=== PATIENT | male | born 1960 | race Caucasian/White ===

== ENCOUNTER 2020-05-18 07:02 | Outpatient (REF) | payer OTHER, SELFPAY ==
[2020-05-18 11:14] LABS: MANUAL DIFF FLAG NO
[2020-05-18 11:25] LABS: Basophils Percent Auto 0.3 % (0-2); Eosinophils Absolute Auto 0.2 X10*3/uL (0.0-0.4); Eosinophils Percent Auto 2.6 % (0-4); Hematocrit 41.8 % (42-52); Hemoglobin 13.9 g/dl (14.0-18.0); Imm Gran Abs Auto 0.02 X10*3/uL (0.00-0.03); Imm Gran Pct Auto 0.3 % (0.0-0.4); Lymphocytes Absolute Auto 3.5 X10*3/uL (1.2-4.9); Lymphocytes Percent Auto 46.4 % (20-40); Mean Corpuscular HGB Conc 33.3 g/dl (31.0-36.0); Mean Corpuscular Hemoglobin 31.2 pg (27.0-33.0); Mean Corpuscular Volume 93.9 fL (80-98); Mean Platelet Volume 9.9 fL (9.4-12.4); Monocytes Absolute Auto 0.8 X10*3/uL (0.1-1.2); Monocytes Percent Auto 10.4 % (2-11); Platelet Count 279 X10*3/uL (160-400); Red Blood Count 4.45 X10*6/uL (4.60-5.80); Red Cell Distribution Width 13.5 % (11.0-16.0); White Blood Count 7.4 X10*3/uL (4.8-10.8)
[2020-05-18 11:46] LABS: Anion Gap 14 (12-20); Blood Urea Nitrogen 18 mg/dL (9-16); Calcium 8.2 mg/dL (8.4-10.2); Carbon Dioxide 26 mmol/L (22-29); Chloride 105 mmol/L (96-108); Cholesterol 165 mg/dL; Estimated Glomerular Filt Rate > 60; Glucose Fasting 101 mg/dL (60-99); HDL Cholesterol 38 mg/dL; LDL Cholesterol Calculated 110 mg/dl; Potassium 4.5 mmol/l (3.3-5.1); Sodium 140 mmol/L (135-145); Triglycerides 85 mg/dL
[2020-05-22 15:51] LABS: Vitamin D 25-OH, D2 <4 ng/mL; Vitamin D 25-OH, D3 27 ng/mL; Vitamin D 25-OH, Total 27 ng/mL (30-100)
== END 2020-05-18 07:03 | disposition home or self-care (01) ==
LOC: HO.HMGCLDS 07:02
PROVIDERS: PCP Internal Medicine; Visit Provider Internal Medicine
DX: Z00.00 Encounter for general adult medical examination without abnormal findings (principal)
CPT/HCPCS: 36415; 80048; 80061; 82306; 85025

== ENCOUNTER 2021-03-13 08:43 | Outpatient (REF) | payer OTHER, SELFPAY ==
--- NOTE | 2021-03-13 08:47 | EMG_ITS ---
This is a 61-year-old man with a 2-month history of right hand numbness in the 5th finger and inability to hold things. He has no other medical problems. No history of trauma. PHYSICAL EXAMINATION: On examination, he is alert and oriented with normal intellectual functions. He has weakness of the intrinsic hand muscles and finger spread. Opposition and APB are normal. He has decreased sensation in the ulnar nerve distribution in the ulnar half of the 4th finger and the 5th finger. IMPRESSION: Ulnar neuropathy. Nerve conduction EMG study: Severe right ulnar neuropathy due to compression at the elbow. EMG of the right upper extremity shows active denervation in the ulnar innervated intrinsic hand muscles consistent with a subacute ulnar neuropathy. MD ARUN De/KAROL / [id number]
== END 2021-03-13 08:44 | disposition home or self-care (01) ==
LOC: HO.NEURO 08:43
PROVIDERS: PCP Internal Medicine; Visit Provider Internal Medicine
DX: R20.2 Paresthesia of skin (principal)
CPT/HCPCS: 95885; 95910

== ENCOUNTER 2021-05-17 10:12 | Outpatient (REF) | payer OTHER, SELFPAY ==
[2021-05-17 11:23] LABS: MANUAL DIFF FLAG NO
[2021-05-17 11:28] LABS: Basophils Percent Auto 0.4 % (0-2); Eosinophils Absolute Auto 0.2 X10*3/uL (0.0-0.4); Eosinophils Percent Auto 2.7 % (0-4); Hematocrit 43.5 % (42.0-52.0); Hemoglobin 14.6 g/dl (14.0-18.0); Imm Gran Abs Auto 0.01 X10*3/uL (0.00-0.03); Imm Gran Pct Auto 0.1 % (0.0-0.4); Lymphocytes Absolute Auto 1.8 X10*3/uL (1.2-4.9); Lymphocytes Percent Auto 25.1 % (20-40); Mean Corpuscular HGB Conc 33.6 g/dl (31.0-36.0); Mean Corpuscular Hemoglobin 32.2 pg (27.0-33.0); Mean Platelet Volume 9.4 fL (9.4-12.4); Monocytes Absolute Auto 0.7 X10*3/uL (0.1-1.2); Monocytes Percent Auto 9.4 % (2-11); Neutrophils Absolute Auto 4.4 x10*3/uL (2.0-8.3); Neutrophils Percent Auto 62.3 % (45-73); Platelet Count 294 X10*3/uL (160-400); Red Blood Count 4.53 X10*6/uL (4.60-5.80); Red Cell Distribution Width 12.9 % (11.0-16.0)
[2021-05-17 11:58] LABS: Alanine Aminotransferase 16 U/L (0-40); Albumin Level 4.3 g/dL (3.5-5.0); Alkaline Phosphatase 65 U/L (39-117); Anion Gap 12 (12-20); Aspartate Amino Transferase 15 U/L (5-37); Bilirubin Total 0.6 mg/dL (0.0-1.0); Blood Urea Nitrogen 19 mg/dL (9-16); Calcium 9.1 mg/dL (8.4-10.2); Carbon Dioxide 27 mmol/L (22-29); Chloride 105 mmol/L (96-108); Estimated Glomerular Filt Rate > 60; Glucose Random 97 mg/dL (60-115); Potassium 5.2 mmol/L (3.3-5.1); Sodium 139 mmol/L (135-145); Total Protein 6.8 g/dL (6.5-8.0)
[2021-05-17 12:10] LABS: Estimated Average Glucose 100 mg/dL; Hemoglobin A1c % 5.1 %
[2021-05-18 11:06] LABS: LDL Cholesterol Direct 98 mg/dL (<100)
== END 2021-05-17 10:13 | disposition home or self-care (01) ==
LOC: HO.HMGCLDS 10:12
PROVIDERS: PCP Internal Medicine; Visit Provider Internal Medicine
DX: Z00.01 Encounter for general adult medical examination with abnormal findings (principal); M19.90 Unspecified osteoarthritis, unspecified site; R73.01 Impaired fasting glucose
CPT/HCPCS: 36415; 80053; 83036; 83721; 85025

== ENCOUNTER 2022-05-21 10:55 | Outpatient (REF) | payer OTHER, SELFPAY ==
[2022-05-21 14:12] LABS: MANUAL DIFF FLAG NO
[2022-05-21 14:13] LABS: Basophils Absolute Auto 0.1 X10*3/uL (0.0-0.2); Basophils Percent Auto 0.6 % (0-2); Eosinophils Absolute Auto 0.2 X10*3/uL (0.0-0.4); Eosinophils Percent Auto 2.6 % (0-4); Hematocrit 44.1 % (42.0-52.0); Hemoglobin 15.2 g/dl (14.0-18.0); Imm Gran Abs Auto 0.02 X10*3/uL (0.00-0.03); Imm Gran Pct Auto 0.2 % (0.0-0.4); Lymphocytes Absolute Auto 2.6 X10*3/uL (1.2-4.9); Lymphocytes Percent Auto 29.4 % (20-40); Mean Corpuscular HGB Conc 34.5 g/dl (31.0-36.0); Mean Corpuscular Hemoglobin 32.1 pg (27.0-33.0); Mean Corpuscular Volume 93.2 fL (80.0-98.0); Mean Platelet Volume 9.4 fL (9.4-12.4); Monocytes Absolute Auto 0.9 X10*3/uL (0.1-1.2); Monocytes Percent Auto 9.5 % (2-11); Neutrophils Absolute Auto 5.1 x10*3/uL (2.0-8.3); Neutrophils Percent Auto 57.7 % (45-73); Platelet Count 322 X10*3/uL (160-400); Red Blood Count 4.73 X10*6/uL (4.60-5.80); White Blood Count 8.9 X10*3/uL (4.8-10.8)
[2022-05-22 16:13] LABS: Estimated Average Glucose 105 mg/dL; Hemoglobin A1c % 5.3 %
[2022-05-23 01:26] LABS: LDL Cholesterol Direct 102 mg/dL (<100)
== END 2022-05-21 10:56 | disposition home or self-care (01) ==
LOC: HO.HMGCLDS 10:55
PROVIDERS: PCP Internal Medicine; Visit Provider Internal Medicine
DX: Z00.01 Encounter for general adult medical examination with abnormal findings (principal); R03.0 Elevated blood-pressure reading, without diagnosis of hypertension; R73.01 Impaired fasting glucose
CPT/HCPCS: 36415; 83036; 83721; 85025

== ENCOUNTER 2022-05-23 09:16 | Outpatient (REF) | payer OTHER, SELFPAY ==
[2022-05-23 12:08] LABS: Alanine Aminotransferase 15 U/L (0-40); Alkaline Phosphatase 80 U/L (39-117); Anion Gap 15 (12-20); Aspartate Amino Transferase 17 U/L (5-37); Bilirubin Total 1.3 mg/dL (0.0-1.0); Blood Urea Nitrogen 20 mg/dL (9-16); Calcium 9.2 mg/dL (8.4-10.2); Carbon Dioxide 25 mmol/L (22-29); Chloride 105 mmol/L (96-108); Estimated Glomerular Filt Rate > 60; Glucose Random 92 mg/dL (60-115); Sodium 140 mmol/L (135-145); Total Protein 6.9 g/dL (6.5-8.0)
[2022-05-23 12:49] LABS: TSH reflex Free T4 0.96 uIU/mL (0.32-4.0)
[2022-05-23 12:59] LABS: Albumin Level 4.3 g/dL (3.5-5.0)
== END 2022-05-23 09:17 | disposition home or self-care (01) ==
LOC: HO.HMGCLDS 09:16
PROVIDERS: PCP Internal Medicine; Visit Provider Internal Medicine
DX: Z00.01 Encounter for general adult medical examination with abnormal findings (principal); R73.01 Impaired fasting glucose; R03.0 Elevated blood-pressure reading, without diagnosis of hypertension
CPT/HCPCS: 36415; 80053; 84443

== ENCOUNTER 2023-05-26 08:26 | Outpatient (AMB) | payer OTHER, SELFPAY ==
--- NOTE | 2023-05-26 08:28 | MHC.PC.OV ---
Vital Signs 05/26/23 08:29 Height 6 ft 0.83 in Weight 182 lb BMI 24.1 BP 120/76 Blood Pressure Location Lt brachial Position Sitting Pulse 76 Pulse Source Pulse Oximeter Pulse Oximetry (%) 96 Oxygen Delivery Method Room Air Intake Visit Reasons: Annual PE Intake Note: Pt is here today for PE. Allergies No Known Allergies [No Known Allergies*] Allergy (Verified 05/26/23 08:31) Medication List - Last Reconciled 05/26/23 by Jennifer Tsang MD No Known Home Meds Tobacco use date assessed: 05/26/23 Dental Screening Dental Screen Date: 05/26/23 Did you have a dental visit in the last 12 months?: Yes Did you have a dental problem in the last 6 months where you did not have access to dental care?: No Was dental information given to patient?: Patient has dentist HPI Annual PE HPI Details It is 63-year-old gentleman came in today for physical examination Blood pressure is well controlled today at 120/76 Patient takes no medication He is prediabetic, he will have labs done fasting Colonoscopy was November of 2013 1 hyperplastic polyp was found it was done by Dr. Durham at [facility] Next 1 in 2023 Continue to have paresthesia right hand secondary to mild ulnar neuropathy However has improved from last year since patient has stop sitting with his elbows on the table Follow-up 1 [facility] Surgical History No pertinent past surgical history Family History Father No problems noted. Mother No problems noted. Son No problems noted. Daughter No problems noted. Daughter No problems noted. Social History Housing: House Alcohol intake: current Alcohol intake frequency: a few times a month Patient Tobacco Use Status: Current everyday Tobacco user Cigarette Packs Per Day: 1 e-Cigarette/Vaping Use: Never Used Current occupational status: employed Cognitive needs: No Hearing needs: No Vision needs: No Questionnaire PHQ-9 Over the last 2 weeks, how often have you been bothered by any of the following problems? 1. Little interest or pleasure in doing things: not at all 2. Feeling down, depressed, or hopeless: not at all 3. Trouble falling or staying asleep, or sleeping too much: not at all 4. Feeling tired or having little energy: not at all 5. Poor appetite or overeating: not at all 6. Feeling bad about yourself - or that you are a failure or have let yourself or your family down: not at all 7. Trouble concentrating on things, such as reading the newspaper or watching television: not at all 8. Moving or speaking so slowly that other people could have noticed. Or the opposite - being so fidgety or restless that you have been moving around a lot more than usual: not at all 9. Thoughts that you would be better off or of hurting yourself in some way: not at all Total score: 0 Depression Screening Interpretation: Negative Depression Screening Done: Yes 12380 - PHQ-9 Billing: Yes Source: Developed by Drs. Jose Bonilla, Cari Gonzalez, Tacho Rodriguez and colleagues, with an educational melquiades from [employer]. Thrive Questionnaire Date Thrive assessed: 05/26/23 I am a: Patient What is your living situation today?: I have a steady place to live Within the past 12 months, did the food you bought not last and you didn't have the money to get more?: Never true Within the past 12 months, did you worry whether your food would run out before you got money to buy more?: Never true Do you have trouble paying for medicines?: No Do you have trouble getting transportation to medical appointments?: No Do you have trouble paying your heating and electricity bill?: No Do you have trouble taking care of your child, family member or friend?: No Do you have trouble with day-to-day activities such as bathing, preparing meals, shopping, managing finances, etc.?: No Are you currently unemployed and looking for a job?: No Are you interested in more education?: No Please select the resources that you would like help with: None Currently or been in a relationship where the following occur: no concerns reported AUDIT C Alcohol Use Questionnaire (AUDIT-C) 1. How often do you have a drink containing alcohol?: Monthly or less 2. How many drinks containing alcohol do you have on a typical day when you are drinking?: 1 or 2 3. How often do you have six or more drinks on one occasion?: Never Total Score: 1 Score Reviewed/Action Taken: No FELICIA-7 AMB Questionnaire FELICIA-7 Date FELICIA - 7 assessed: 05/26/23 Feeling nervous, anxious, or on edge: 0 = Not at all Not being able to stop or control worryin = Not at all Worrying too much about different things: 0 = Not at all Trouble relaxin = Not at all Being so restless that it is hard to sit still: 0 = Not at all Becoming easily annoyed or irritable: 0 = Not at all Feeling afraid as if something awful might happen: 0 = Not at all Total FELICIA-7 score (0-4 normal; 5-9 mild; 10-14 moderate; 15-21 severe): 0 Source: Developed by Drs. Jose Bonilla, Cari Gonzalez, Tacho Rodriguez and colleagues, with an educational melquiades from [employer]. FELICIA-7 Assessment Billing FELICIA-7 Assessment Tool: FELICIA-7 Assessment 97283 Review of Systems Const Denies chills, Denies fever(s) and Denies headache(s) Eyes Denies blurry vision ENT Denies headache(s), Denies nasal discharge, Denies nasal obstruction, Denies odynophagia and Denies sinus pain Card Denies chest pain at rest and Denies chest pain with activity Resp Denies cough and Denies hemoptysis GI Denies diarrhea, Denies odynophagia, Denies vomiting and Denies hematemesis Reports as per HPI Musc Denies abnormal gait Skin/Breast Reports as per HPI Neuro Denies Neuro-related abnormal movements, Denies Abnormal speech present, Denies abnormal gait, Denies headache(s) and Denies Sensory deficit (Neuro) Psych Denies mood swings and Denies paranoia Endo Reports as per HPI Shiraz/Lymph Reports as per HPI Aller/Immun Reports as per HPI Physical exam (Primary Care) Vital Signs: Last Vital Signs Pulse 76 05/26/23 08:29 BP 120/76 05/26/23 08:29 Pulse Ox 96 05/26/23 08:29 Oxygen Delivery Method Room Air 05/26/23 08:29 BMI result Body Mass Index 24.1 Tobacco/Smoking Status: Tobacco use Status Tobacco use date assessed 05/26/23 05/26/23 08:34 Patient Tobacco Use Status Current everyday Tobacco 05/26/23 08:31 e-Cigarette/Vaping Use Never Used 05/26/23 08:31 PHQ-9: PHQ-9 Score PHQ-9: Total score 0 05/26/23 08:48 Depression Screening Interpretation: Negative Thrive Assessment: Date of Thrive Assessment Date Thrive assessed 05/26/23 05/26/23 08:34 Currently or been in a relationship where the following occur: no concerns reported Const General: cooperative, comfortable and no acute distress Orientation/consciousness: patient oriented x3 HENMT Head: Yes normocephalic and Yes atraumatic Eyes General: appearance normal, both eyes and all related structures Pupils: Equal, round and reactive pupils present EOM: EOMs intact bilaterally Neck Neck: Yes supple and No lymphadenopathy Thyroid: Thyroid normal Lymphatic: no lymphadenopathy noted Resp Effort & Inspection: normal respiratory effort and able to speak in complete sentences Auscultation: clear to auscultation bilaterally Cardio Heart sounds: S1 normal heart sound present and S2 normal heart sound present GI Palpation (GI): Soft to palpation and nontender Auscultation: normal bowel sounds General: Yes no CVA tenderness Back/Spine/Pelvis Back: no CVA tenderness Skin General skin exam: elasticity normal and turgor normal Neuro General: patient oriented x3 and gait normal Cranial nerves: Yes Equal, round and reactive pupils present Speech: No Abnormal speech present Sensory Exam: No Sensory deficit (Neuro) Coordination: tandem gait normal and Romberg test negative Extrem General: Yes normal exam except as noted and No edema Assessment and Plan Assessment & Plan (1) Encounter for general adult medical examination with abnormal findings: Code(s): Z00.01 - Encounter for general adult medical examination with abnormal findings (2) Impaired fasting blood sugar: Code(s): R73.01 - Impaired fasting glucose (3) Ulnar neuropathy of right upper extremity: Code(s): G56.21 - Lesion of ulnar nerve, right upper limb (4) Paresthesias in right hand: Code(s): R20.2 - Paresthesia of skin Plan It is 63-year-old gentleman came in today for physical examination Blood pressure is well controlled today at 120/76 Patient takes no medication He is prediabetic, he will have labs done fasting Colonoscopy was November of 2013 1 hyperplastic polyp was found it was done by Dr. Durham at [facility] Next 1 in 2023 Continue to have paresthesia right hand secondary to mild ulnar neuropathy However has improved from last year since patient has stop sitting with his elbows on the table Follow-up 1 year Orders: Orders Lipid Panel Today R73.01 - Impaired fasting glucose, Z00.01 - Encounter for general adult medical examination with abnormal findings Hemoglobin A1c Today R73.01 - Impaired fasting glucose, Z00.01 - Encounter for general adult medical examination with abnormal findings Complete Blood Count Auto Diff Today R73.01 - Impaired fasting glucose, Z00.01 - Encounter for general adult medical examination with abnormal findings Comprehensive [place]. Panel Fast Today R73.01 - Impaired fasting glucose, Z00.01 - Encounter for general adult medical examination with abnormal findings Coding Level of Care Code Est Pt Prev Care 40-64y(09247) Diagnoses Encounter for general adult medical examination with abnormal findings Z00.01 Impaired fasting blood sugar R73.01 Ulnar neuropathy of right upper extremity G56.21 Paresthesias in right hand R20.2 Additional Codes FELICIA-7 Assessment Billing - FELICIA-7 Assessment Tool: FELICIA-7 Assessment 59269 ([id number])
[2023-05-26 08:29] VITALS: BP 120/76; PULSE 76; O2SAT 96; BMI 24.1
== END 2023-05-26 10:17 | disposition home or self-care (01) ==
PROVIDERS: Visit Provider Internal Medicine
DX: Z00.00 Encounter for general adult medical examination without abnormal findings (principal); R73.01 Impaired fasting glucose; G56.21 Lesion of ulnar nerve, right upper limb; R20.2 Paresthesia of skin
CPT/HCPCS: 99396

== ENCOUNTER 2023-06-05 08:28 | Outpatient (REF) | payer OTHER, SELFPAY ==
[2023-06-05 11:22] LABS: MANUAL DIFF FLAG NO
[2023-06-05 11:42] LABS: Estimated Average Glucose 103 mg/dL; Hemoglobin A1c % 5.2 % (<6.0)
[2023-06-05 11:52] LABS: Basophils Absolute Auto 0.1 X10*3/uL (0.0-0.2); Basophils Percent Auto 0.6 % (0-2); Eosinophils Absolute Auto 0.4 X10*3/uL (0.0-0.4); Hematocrit 44.5 % (42.0-52.0); Hemoglobin 15.2 g/dl (14.0-18.0); Imm Gran Abs Auto 0.02 X10*3/uL (0.00-0.03); Imm Gran Pct Auto 0.2 % (0.0-0.4); Lymphocytes Absolute Auto 3.5 X10*3/uL (1.2-4.9); Lymphocytes Percent Auto 34.8 % (20-40); Mean Corpuscular HGB Conc 34.2 g/dl (31.0-36.0); Mean Corpuscular Hemoglobin 31.5 pg (27.0-33.0); Mean Corpuscular Volume 92.3 fL (80.0-98.0); Mean Platelet Volume 9.6 fL (9.4-12.4); Monocytes Absolute Auto 0.8 X10*3/uL (0.1-1.2); Monocytes Percent Auto 7.8 % (2-11); Neutrophils Absolute Auto 5.3 x10*3/uL (2.0-8.3); Neutrophils Percent Auto 52.6 % (45-73); Platelet Count 304 X10*3/uL (160-400); Red Blood Count 4.82 X10*6/uL (4.60-5.80); Red Cell Distribution Width 13.5 % (11.0-16.0); White Blood Count 10.1 X10*3/uL (4.8-10.8)
[2023-06-05 12:09] LABS: Alanine Aminotransferase 15 U/L (0-40); Albumin Level 4.4 g/dL (3.5-5.0); Alkaline Phosphatase 73 U/L (39-117); Anion Gap 12 (12-20); Aspartate Amino Transferase 18 U/L (5-37); Bilirubin Total 1.8 mg/dL (0.0-1.0); Blood Urea Nitrogen 14 mg/dL (9-16); Calcium 9.7 mg/dL (8.4-10.2); Carbon Dioxide 28 mmol/L (22-29); Chloride 105 mmol/L (96-108); Cholesterol 138 mg/dL (<200); Estimated Glomerular Filt Rate > 60; Glucose Fasting 114 mg/dL (60-99); HDL Cholesterol 47 mg/dL (>40); LDL Cholesterol Calculated 79 mg/dL (<100); Potassium 5.4 mmol/L (3.3-5.1); Sodium 140 mmol/L (135-145); Total Protein 7.1 g/dL (6.5-8.0); Triglycerides 61 mg/dL (<150)
== END 2023-06-05 08:29 | disposition home or self-care (01) ==
LOC: HO.HMGCLDS 08:28
PROVIDERS: PCP Internal Medicine; Visit Provider Internal Medicine
DX: Z00.01 Encounter for general adult medical examination with abnormal findings (principal); R73.01 Impaired fasting glucose
CPT/HCPCS: 36415; 80053; 80061; 83036; 85025

== ENCOUNTER 2023-06-11 07:50 | Outpatient (REF) | payer OTHER, SELFPAY ==
[2023-06-11 11:45] LABS: Estimated Average Glucose 108 mg/dL; Hemoglobin A1c % 5.4 % (<6.0)
[2023-06-11 12:17] LABS: Anion Gap 12 (12-20); Blood Urea Nitrogen 17 mg/dL (9-16); Carbon Dioxide 27 mmol/L (22-29); Chloride 106 mmol/L (96-108); Estimated Glomerular Filt Rate > 60; Potassium 4.5 mmol/L (3.3-5.1); Sodium 140 mmol/L (135-145)
== END 2023-06-11 07:51 | disposition home or self-care (01) ==
LOC: HO.HMGCLDS 07:50
PROVIDERS: PCP Internal Medicine; Visit Provider Internal Medicine
DX: E87.5 Hyperkalemia (principal); R73.01 Impaired fasting glucose
CPT/HCPCS: 36415; 80051; 82565; 83036; 84520

== ENCOUNTER 2024-05-31 08:12 | Outpatient (AMB) | payer OTHER, SELFPAY ==
--- NOTE | 2024-05-31 08:16 | A.OFFPC_ITS ---
Vital Signs 05/31/24 08:17 Height 5 ft 8 in Weight 180 lb 6 oz BMI 27.4 BP 118/68 Blood Pressure Location Lt brachial Position Sitting Pulse 72 Pulse Source Pulse Oximeter Pulse Oximetry (%) 96 Oxygen Delivery Method Room Air Intake Visit Reasons: PE Allergies No Known Allergies [No Known Allergies*] Allergy (Verified 05/31/24 08:30) Medication List - Last Reconciled 05/31/24 by Jennifer Tsang MD No Known Home Meds Tobacco use date assessed: 05/31/24 Fall risk assessment: No Falls in past year Last assessed Fall Risk: 05/31/24 Dental Screening Dental Screen Date: 05/31/24 Did you have a dental visit in the last 12 months?: Yes Did you have a dental problem in the last 6 months where you did not have access to dental care?: No Was dental information given to patient?: Patient has dentist HPI PE HPI Details It is 64-year-old gentleman came in today for physical examination Blood pressure is well controlled Patient takes no medication He is prediabetic, he will have labs done fasting Colonoscopy was November of 2013 1 hyperplastic polyp was found it was done by Dr. Durham at [facility] Next colon screening is due this year, however patient does not want to have colonoscopy this year. He says maybe next year Lab test ordered to be done fasting today Follow-up 1 year physical exam [facility] Surgical History No pertinent past surgical history Family History Father No problems noted. Mother No problems noted. Son No problems noted. Daughter No problems noted. Daughter No problems noted. Social History Housing: House Alcohol intake: current Alcohol intake frequency: a few times a month Patient Tobacco Use Status: Current everyday Tobacco user Cigarette Packs Per Day: 1 e-Cigarette/Vaping Use: Never Used Current occupational status: employed Cognitive needs: No Hearing needs: No Vision needs: No Questionnaire PHQ-9 Over the last 2 weeks, how often have you been bothered by any of the following problems? 1. Little interest or pleasure in doing things: not at all 2. Feeling down, depressed, or hopeless: not at all 3. Trouble falling or staying asleep, or sleeping too much: not at all 4. Feeling tired or having little energy: not at all 5. Poor appetite or overeating: not at all 6. Feeling bad about yourself - or that you are a failure or have let yourself or your family down: not at all 7. Trouble concentrating on things, such as reading the newspaper or watching television: not at all 8. Moving or speaking so slowly that other people could have noticed. Or the opposite - being so fidgety or restless that you have been moving around a lot more than usual: not at all 9. Thoughts that you would be better off or of hurting yourself in some way: not at all Total score: 0 Depression Screening Interpretation: Negative Depression Screening Done: Yes 57610 - PHQ-9 Billing: Yes Source: Developed by Drs. Jose Bonilal, Cari Gonzalez, Tacho Rodriguez and colleagues, with an educational melquiades from [employer]. Thrive Questionnaire Date Thrive assessed: 05/31/24 I am a: Patient What is your living situation today?: I have a steady place to live Within the past 12 months, did the food you bought not last and you didn't have the money to get more?: Never true Within the past 12 months, did you worry whether your food would run out before you got money to buy more?: Never true Do you have trouble paying for medicines?: No Do you have trouble getting transportation to medical appointments?: No Do you have trouble paying your heating and electricity bill?: No Do you have trouble taking care of your child, family member or friend?: No Do you have trouble with day-to-day activities such as bathing, preparing meals, shopping, managing finances, etc.?: No Are you currently unemployed and looking for a job?: No Are you interested in more education?: No Please select the resources that you would like help with: None Currently or been in a relationship where the following occur: No concerns reported THRIVE Score: 0 AUDIT C Alcohol Use Questionnaire (AUDIT-C) 1. How often do you have a drink containing alcohol?: Monthly or less 2. How many drinks containing alcohol do you have on a typical day when you are drinking?: 1 or 2 3. How often do you have six or more drinks on one occasion?: Never Total Score: 1 Score Reviewed/Action Taken: Yes FELICIA-7 AMB Questionnaire FELICIA-7 Date FELICIA - 7 assessed: 05/31/24 Feeling nervous, anxious, or on edge: 0 = Not at all Not being able to stop or control worryin = Not at all Worrying too much about different things: 0 = Not at all Trouble relaxin = Not at all Being so restless that it is hard to sit still: 0 = Not at all Becoming easily annoyed or irritable: 0 = Not at all Feeling afraid as if something awful might happen: 0 = Not at all Total FELICIA-7 score (0-4 normal; 5-9 mild; 10-14 moderate; 15-21 severe): 0 Source: Developed by Drs. Jose Bonilla, Cari Gonzalez, Tacho Rodriguez and colleagues, with an educational melquiades from [employer]. FELICIA-7 Assessment Billing FELICIA-7 Assessment Tool: FELICIA-7 Assessment 94994 Review of Systems Const Denies chills, Denies fever(s) and Denies headache(s) Eyes Denies blurry vision ENT Denies headache(s), Denies nasal discharge, Denies nasal obstruction, Denies odynophagia and Denies sinus pain Card Denies chest pain at rest and Denies chest pain with activity Resp Denies cough and Denies hemoptysis GI Denies diarrhea, Denies odynophagia, Denies vomiting and Denies hematemesis Reports as per HPI Musc Denies abnormal gait Skin/Breast Reports as per HPI Neuro Denies Neuro-related abnormal movements, Denies Abnormal speech present, Denies abnormal gait, Denies headache(s) and Denies Sensory deficit (Neuro) Psych Denies mood swings and Denies paranoia Endo Reports as per HPI Shiraz/Lymph Reports as per HPI Aller/Immun Reports as per HPI Physical exam (Primary Care) Vital Signs: Last Vital Signs Pulse 72 05/31/24 08:17 BP 118/68 05/31/24 08:17 Pulse Ox 96 05/31/24 08:17 Oxygen Delivery Method Room Air 05/31/24 08:17 BMI result Body Mass Index 27.4 Tobacco/Smoking Status: Tobacco use Status Tobacco use date assessed 05/31/24 05/31/24 08:31 Patient Tobacco Use Status Current everyday Tobacco 05/31/24 08:19 e-Cigarette/Vaping Use Never Used 05/31/24 08:19 PHQ-9: PHQ-9 Score PHQ-9: Total score 0 05/31/24 08:31 Depression Screening Interpretation: Negative Thrive Assessment: Date of Thrive Assessment Date Thrive assessed 05/31/24 05/31/24 08:31 Currently or been in a relationship where the following occur: No concerns reported Const General: cooperative, comfortable and no acute distress Orientation/consciousness: patient oriented x3 HENMT Head: Yes normocephalic and Yes atraumatic Eyes General: appearance normal, both eyes and all related structures Pupils: Equal, round and reactive pupils present EOM: EOMs intact bilaterally Neck Neck: Yes supple and No lymphadenopathy Thyroid: Thyroid normal Lymphatic: no lymphadenopathy noted Resp Effort & Inspection: normal respiratory effort and able to speak in complete sentences Auscultation: clear to auscultation bilaterally Cardio Heart sounds: S1 normal heart sound present and S2 normal heart sound present GI Palpation (GI): Soft to palpation and nontender Auscultation: normal bowel sounds General: Yes no CVA tenderness Back/Spine/Pelvis Back: no CVA tenderness Skin General skin exam: elasticity normal and turgor normal Neuro General: patient oriented x3 and gait normal Cranial nerves: Yes Equal, round and reactive pupils present Speech: No Abnormal speech present Sensory Exam: No Sensory deficit (Neuro) Coordination: tandem gait normal and Romberg test negative Extrem General: Yes normal exam except as noted and No edema Coding Level of Care Code Est Pt Prev Care 40-64y(55252) Diagnoses Annual physical exam Z00.00 Impaired fasting blood sugar R73.01 Additional Codes FELICIA-7 Assessment Billing - FELICIA-7 Assessment Tool: FELICIA-7 Assessment 03123 ([id number]) PHQ-9 - 41201 - PHQ-9 Billing: Yes ([id number]) Assessment & Plan Assessment & Plan (1) Annual physical exam: Code(s): Z00.00 - Encounter for general adult medical examination without abnormal findings Category: Medical (2) Impaired fasting blood sugar: Code(s): R73.01 - Impaired fasting glucose Category: Medical Plan It is 64-year-old gentleman came in today for physical examination Blood pressure is well controlled Patient takes no medication He is prediabetic, he will have labs done fasting Colonoscopy was November of 2013 1 hyperplastic polyp was found it was done by Dr. Durham at [facility] Next colon screening is due this year, however patient does not want to have colonoscopy this year. He says maybe next year Lab test ordered to be done fasting today Follow-up 1 year physical exam Orders: Orders Hemoglobin A1c Today R73.01 - Impaired fasting glucose, Z00.00 - Encounter for general adult medical examination without abnormal findings Complete Blood Count Auto Diff Today R73.01 - Impaired fasting glucose, Z00.00 - Encounter for general adult medical examination without abnormal findings Comprehensive [place]. Panel Fast Today R73.01 - Impaired fasting glucose, Z00.00 - Encounter for general adult medical examination without abnormal findings Lipid Panel Today R73.01 - Impaired fasting glucose, Z00.00 - Encounter for general adult medical examination without abnormal findings
[2024-05-31 08:17] VITALS: BP 118/68; PULSE 72; O2SAT 96; BMI 27.4
== END 2024-05-31 08:52 | disposition home or self-care (01) ==
PROVIDERS: PCP Internal Medicine; Visit Provider Internal Medicine
DX: Z00.00 Encounter for general adult medical examination without abnormal findings (principal); R73.01 Impaired fasting glucose

== ENCOUNTER 2024-05-31 08:12 | Outpatient (REF) | payer OTHER, SELFPAY ==
[2024-05-31 10:01] LABS: MANUAL DIFF FLAG NO
[2024-05-31 10:05] LABS: Basophils Absolute Auto 0.1 X10*3/uL (0.0-0.2); Basophils Percent Auto 0.6 % (0-2); Eosinophils Absolute Auto 0.3 X10*3/uL (0.0-0.4); Hemoglobin 13.9 g/dl (14.0-18.0); Imm Gran Abs Auto 0.04 X10*3/uL (0.00-0.03); Imm Gran Pct Auto 0.4 % (0.0-0.4); Lymphocytes Absolute Auto 2.5 X10*3/uL (1.2-4.9); Mean Corpuscular HGB Conc 33.9 g/dl (31.0-36.0); Mean Corpuscular Hemoglobin 31.2 pg (27.0-33.0); Mean Corpuscular Volume 92.1 fL (80.0-98.0); Mean Platelet Volume 9.5 fL (9.4-12.4); Monocytes Absolute Auto 0.9 X10*3/uL (0.1-1.2); Monocytes Percent Auto 8.8 % (2-11); Neutrophils Absolute Auto 6.3 x10*3/uL (2.0-8.3); Neutrophils Percent Auto 62.2 % (45-73); Platelet Count 287 X10*3/uL (160-400); Red Blood Count 4.45 X10*6/uL (4.60-5.80); Red Cell Distribution Width 12.4 % (11.0-16.0); White Blood Count 10.1 X10*3/uL (4.8-10.8)
[2024-05-31 10:30] LABS: Estimated Average Glucose 111 mg/dL; Hemoglobin A1C 125.8695 umol/L; Hemoglobin A1c % 5.5 % (<6.0); Total Hemoglobin (HGBA1C) 3475.2637 umol/L
[2024-05-31 10:36] LABS: Alanine Aminotransferase 19 U/L (0-40); Alkaline Phosphatase 64 U/L (39-117); Anion Gap 11 (12-20); Aspartate Amino Transferase 30 U/L (5-37); Bilirubin Total 0.4 mg/dL (0.0-1.0); Blood Urea Nitrogen 17 mg/dL (9-16); Calcium 9.2 mg/dL (8.4-10.2); Carbon Dioxide 26 mmol/L (22-29); Chloride 107 mmol/L (96-108); Cholesterol 115 mg/dL (<200); Estimated Glomerular Filt Rate > 60; Glucose Fasting 144 mg/dL (60-99); HDL Cholesterol 42 mg/dL (>40); LDL Cholesterol Calculated 64 mg/dL (<100); Potassium 4.5 mmol/L (3.3-5.1); Sodium 139 mmol/L (135-145); Total Protein 6.5 g/dL (6.5-8.0); Triglycerides 45 mg/dL (<150)
== END 2024-05-31 08:13 | disposition home or self-care (01) ==
LOC: HO.HMGCLDS 08:12
PROVIDERS: PCP Internal Medicine; Visit Provider Internal Medicine
DX: Z00.00 Encounter for general adult medical examination without abnormal findings (principal); R73.03 Prediabetes
CPT/HCPCS: 36415; 80053; 80061; 83036; 85025; 96127; 99396

== ENCOUNTER 2025-06-06 08:14 | Outpatient (AMB) | payer OTHER, SELFPAY ==
--- OUTSIDE RECORDS SUMMARY | 2025-06-06 08:16 | XMS_ITS | Clinical Summary ---
Author Organization [facility] Address [address] [place] [address] Care Team Providers Care [employer] Name Role Phone Jennifer Tsang MD Primary Care Provider [phone] Social History Tobacco Use Types Packs/Day Years Used Date Smoking Tobacco: Never Assessed Sex and Gender Information Value Date Recorded Sex Assigned at Not on file Gender Identity Not on file Sexual Orientation Not on file Plan of Treatment Health Maintenance Due Date Last Done Comments Hepatitis C Screening 1960 COVID-19 Vaccine (#1) 1960 Depression Screening 1972 Preventative Health Evaluation 02/20/1978 DTap / Tdap / Td (1 - Tdap) 02/20/1979 Colon Cancer Screening (Colonoscopy) 02/20/2005 Shingrix-Zoster Vaccine (1 of 2) 02/20/2010 Fall Risk Assessment 02/20/2025 Pneumococcal Vaccine (1 of 1 - PCV) 02/20/2025 Influenza Vaccine (#1) 2025 RSV Adult > 60+ Yrs or Pregn ant (1 - 1-dose 75+ series) 02/20/2035 Hepatitis B Vaccines Aged Out No long er eligible based on patient's age to complete this topic Pneumococcal Vaccine Aged Out No long er eligible based on patient's age to complete this topic RSV Ped < 20 months Aged Out No longe r eligible based on patient's age to complete this topic Care Teams [employer] Relationship Specialty Start Date End Date Jennifer Tsang MD [address] [facility] [place] [id number] PCP - General Internal Medicine 03/16/20
[2025-06-06 08:17] VITALS: BP 130/80; PULSE 71; O2SAT 98; BMI 25.8
--- NOTE | 2025-06-06 08:17 | A.OFFPC_ITS ---
Vital Signs 06/06/25 08:17 Height 5 ft 8 in Weight 170 lb BMI 25.8 BP 130/80 Blood Pressure Location Lt brachial Position Sitting Pulse 71 Pulse Source Pulse Oximeter Pulse Oximetry (%) 98 Intake Visit Reasons: Annual PE Allergies No Known Allergies (No Known Allergies*) Allergy (Verified 06/06/25 08:17) Medication List - Last Reconciled 06/06/25 by Jennifer Tsang MD No Known Home Meds Tobacco use date assessed: 06/06/25 Fall risk assessment: No Falls in past year Last assessed Fall Risk: 06/06/25 Dental Screening Dental Screen Date: 06/06/25 Did you have a dental visit in the last 12 months?: Yes Did you have a dental problem in the last 6 months where you did not have access to dental care?: No Was dental information given to patient?: Patient has dentist HPI HPI Comments History of Present Illness Details History of Present Illness The patient is a 65 year old individual presenting for Physical exam and evaluation of bilateral elbow swelling and follow-up on a prior episode of right knee swelling. 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 History of Right Knee Swelling: - A couple of months ago, after working on the patient's knees for about a week, the patient developed significant, painless swelling in the right knee. - This was followed by the appearance of a hematoma below the knee, which migrated downwards. - The swelling and hematoma resolved com pletely within approximately one week. Prediabetes: - The patient was diagnosed with prediab etes based on a previous blood test showing elevated blood sugar. - The patient denies a family history of diabetes. Health Maintenance: - The patient is due for a colonoscopy b ut has not had one recently because it is not covered by the patient's current insurance. - The patient plans to enroll in [employer] in August and will schedule the procedure at that time. - The patient declined an influenza vacc ination during the visit. Medical History: - Prediabetes - History of smoking, has since quit. 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 - Tobacco use: The patient has a history of smoking but reported having stopped. - Housing: The patient lives in [place] . 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 Family History: - The patient denies any family history of diabetes. Health Maintenance - Colonoscopy: The patient is due for a colonoscopy but has deferred it due to current insurance not providing coverage. - The patient anticipates getting [employer] coverage in August and will proceed with the screening then. - Vaccinations: The patient declined the influenza vaccine. - Labs: Fasting bloodwork was ordered to check blood sugar levels due to a history of prediabetes. Employment - The patient works in [employer] ch is a physically demanding job involving lifting. 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 - The patient is planning to retire soon . [facility] Surgical History No pertinent past surgical history Family History Father No problems noted. Mother No problems noted. Son No problems noted. Daughter No problems noted. Daughter No problems noted. Social History Housing: House Alcohol intake: current Alcohol intake frequency: a few times a month Patient Tobacco Use Status: Current everyday Tobacco user Cigarette Packs Per Day: 1 e-Cigarette/Vaping Use: Never Used Current occupational status: employed Cognitive needs: No Hearing needs: No Vision needs: No Questionnaire PHQ-9 Over the last 2 weeks, how often have you been bothered by any of the following problems? 1. Little interest or pleasure in doing things: not at all 2. Feeling down, depressed, or hopeless: not at all 3. Trouble falling or staying asleep, or sleeping too much: not at all 4. Feeling tired or having little energy: not at all 5. Poor appetite or overeating: not at all 6. Feeling bad about yourself - or that you are a failure or have let yourself or your family down: not at all 7. Trouble concentrating on things, such as reading the newspaper or watching television: not at all 8. Moving or speaking so slowly that other people could have noticed. Or the opposite - being so fidgety or restless that you have been moving around a lot more than usual: not at all 9. Thoughts that you would be better off or of hurting yourself in some way: not at all Total score: 0 Depression Screening Interpretation: Negative Depression Screening Done: Yes 64252 - PHQ-9 Billing: Yes Source: Developed by Drs. Jose Bonilla, Cari Gonzalez, Tacho Rodriugez and colleagues, with an educational melquiades from [employer]. Thrive Questionnaire Date Thrive assessed: 06/06/25 I am a: Patient What is your living situation today?: I have a steady place to live Within the past 12 months, did the food you bought not last and you didn't have the money to get more?: Never true Within the past 12 months, did you worry whether your food would run out before you got money to buy more?: Never true Do you have trouble paying for medicines?: No Do you have trouble getting transportation to medical appointments?: No Do you have trouble paying your heating and electricity bill?: No Do you have trouble taking care of your child, family member or friend?: No Do you have trouble with day-to-day activities such as bathing, preparing meals, shopping, managing finances, etc.?: No Are you currently unemployed and looking for a job?: No Are you interested in more education?: No Please select the resources that you would like help with: None Currently or been in a relationship where the following occur: No concerns rep orted THRIVE Score: 0 AUDIT C Alcohol Use Questionnaire (AUDIT-C) 1. How often do you have a drink containing alcohol?: Monthly or less 2. How many drinks containing alcohol do you have on a typical day when you are drinking?: 1 or 2 3. How often do you have six or more drinks on one occasion?: Never Total Score: 1 Score Reviewed/Action Taken: Yes FELICIA-7 AMB Questionnaire FELICIA-7 Date FELICIA - 7 assessed: 06/06/25 Feeling nervous, anxious, or on edge: 0 = Not at all Not being able to stop or control worryin = Not at all Worrying too much about different things: 0 = Not at all Trouble relaxin = Not at all Being so restless that it is hard to sit still: 0 = Not at all Becoming easily annoyed or irritable: 0 = Not at all Feeling afraid as if something awful might happen: 0 = Not at all Total FELICIA-7 score (0-4 normal; 5-9 mild; 10-14 moderate; 15-21 severe): 0 Source: Developed by Drs. Jose Bonilla, Cari Gonzalez, Tacho Rodriguez and colleagues, with an educational melquiades from [employer]. FELICIA-7 Assessment Billing FELICIA-7 Assessment Tool: FELICIA-7 Assessment 82937 Review of Systems Narrative Review of Systems - General: No fever no chills - Neurological: No headaches no dizziness - Ear nose throat: No sore throat no hearing difficulty no ear pain - Cardiovascular: No syncope, no chest pain, no palpitations - Gastrointestinal: No nausea vomiting or diarrhea - Endocrine: No polyuria polydipsia no heat intolerance - Genitourinary: No dysuria - Skin: No new complaints Physical exam (Primary Care) Vital Signs: Last Vital Signs Pulse 71 06/06/25 08:17 BP 130/80 06/06/25 08:17 Pulse Ox 98 06/06/25 08:17 BMI result Body Mass Index 25.8 Tobacco/Smoking Status: Tobacco use Status Tobacco use date assessed 06/06/25 06/06/25 08:18 Patient Tobacco Use Status Current everyday Tobacco 06/06/25 08:18 e-Cigarette/Vaping Use Never Used 06/06/25 08:18 PHQ-9: PHQ-9 Score PHQ-9: Total score 0 06/06/25 08:39 Depression Screening Interpretation: Negative Thrive Assessment: Date of Thrive Assessment Date Thrive assessed 06/06/25 06/06/25 08:18 Currently or been in a relationship where the following occur: No concerns reported Narrative Diagnostic results - Labs: Previous blood tests revealed elevated blood sugar, consistent with prediabetes. Physical Exam General: Cooperative, healthy appearing, comfortable, no acute distress Orientation: Patient oriented x3 Head: Normal to inspection Ears: Within normal limit visually Nose: Normal external nose present Face and sinus: Normal facial exam Eyes: Appearance normal, extraocular movement intact pupils reactive Neck: Normal visual inspection and supple Respiratory: Normal respiratory effort and able to speak in complete sentences. Clear to auscultation, no stridor Cardiovascular: S1 and S2 RRR GI: Normal to inspection. Soft to palpation and nontender Skin: Turgor normal, no acute findings Neuro: Patient oriented x3, motor sensory intact, balance intact, tandem pass Extremities: Swelling of both elbows, lateral epicondyle, without tenderness, and has full ROM. Right knee with history of hematoma, resolved but with some residual difference in appearance. . Coding Level of Care Code Est Pt Level 3 (77295) Est Pt Prev Care >65y(47381) Diagnoses Encounter for general adult medical examination with abnormal findings Z00.01 Impaired fasting blood sugar R73.01 Primary osteoarthritis of both knees M17.0 Osteoarthritis type: primary Bilateral tennis elbow M77.11; M77.12 Additional Codes FELICIA-7 Assessment Billing - FELICIA-7 Assessment Tool: FELICIA-7 Assessment 98780 ([id number]) PHQ-9 - 48761 - PHQ-9 Billing: Yes ([id number]) Assessment & Plan Assessment & Plan (1) Encounter for general adult medical examination with abnormal findings: Code(s): Z00.01 - Encounter for general adult medical examination with abnormal findings Category: Medical (2) Impaired fasting blood sugar: Code(s): R73.01 - Impaired fasting glucose Category: Medical (3) Osteoarthritis of both knees: Code(s): M17.0 - Bilateral primary osteoarthritis of knee Category: Medical Qualifiers: Osteoarthritis type: primary Qualified Code(s): M17.0 - Bilateral primary osteoarthritis of knee (4) Bilateral tennis elbow: Code(s): M77.11 - Lateral epicondylitis, right elbow; M77.12 - Lateral epicondylitis, left elbow Category: Medical Plan Patient Instructions - You will need to get blood tests and X-rays done in the next two to three days. - Do not eat or drink anything except water for 8 hours before your blood test. - You will have X-rays taken of both your elbows and both your knees on the same day as your blood test. - You can go to the lab without an appointment; it opens at 6:30 AM. - Please call our office to schedule your first Medicare visit once you receive your new insurance card in August. Orders: Orders Vitamin D 25-OH (D2 and D3) Today M17.0 - Bilateral primary osteoarthritis of knee, M77.11 - Lateral epicondylitis, right elbow, M77.12 - Lateral epicondyliti s, left elbow, R73.01 - Impaired fasting glucose, Z00.01 - Encounter for general adult medical examination with abnormal findings XR knee RT 2V Today M17.0 - Bilateral primary osteoarthritis of knee, M77.11 - Lateral epicondylitis, right elbow, M77.12 - Lateral epicondylitis, left elbow Complete Blood Count Auto Diff Today M17.0 - Bilateral primary osteoarthritis of knee, M77.11 - Lateral epicondylitis, right elbow, M77.12 - Lateral epicondylitis, left elbow, R73.01 - Impaired fasting glucose, Z00.01 - Encounter for general adult medical examination with abnormal findings Comprehensive [place]. Panel Fast Today M17.0 - Bilateral primary osteoarthritis of knee, M77.11 - Lateral epicondylitis, right elbow, M77.12 - Lateral epicondylitis, left elbow, R73.01 - Impaired fasting glucose, Z00.01 - Encounter for general adult medical examination with abnormal findings Lipid Panel Today M17.0 - Bilateral primary osteoarthritis of knee, M77.11 - Lateral epicondylitis, right elbow, M77.12 - Lateral epicondylitis, left elbow, R73.01 - Impaired fasting glucose, Z00.01 - Encounter for general adult medical examination with abnormal findings Vitamin B12 Today M17.0 - Bilateral primary osteoarthritis of knee, M77.11 - Lateral epicondylitis, right elbow, M77.12 - Lateral epicondylitis, left elbow, R73.01 - Impaired fasting glucose, Z00.01 - Encounter for general adult medical examination with abnormal findings Hemoglobin A1c Today M17.0 - Bilateral primary osteoarthritis of knee, M77.11 - Lateral epicondylitis, right elbow, M77.12 - Lateral epicondylitis, left elbow, R73.01 - Impaired fasting glucose, Z00.01 - Encounter for general adult medical examination with abnormal findings XR knee LT 2V Today M17.0 - Bilateral primary osteoarthritis of knee, M77.11 - Lateral epicondylitis, right elbow, M77.12 - Lateral epicondylitis, left elbow XR Elbow Garfield 2V Today M17.0 - Bilateral primary osteoarthritis of knee, M77.11 - Lateral epicondylitis, right elbow, M77.12 - Lateral epicondylitis, left elbow
== END 2025-06-06 08:37 | disposition home or self-care (01) ==
LOC: HO.HMCC 08:14
PROVIDERS: PCP Internal Medicine; Visit Provider Internal Medicine
DX: Z00.01 Encounter for general adult medical examination with abnormal findings (principal); R73.01 Impaired fasting glucose; M17.0 Bilateral primary osteoarthritis of knee; M77.11 Lateral epicondylitis, right elbow; M77.12 Lateral epicondylitis, left elbow

== ENCOUNTER → 2025-06-06 08:14 | Outpatient (BNVA) | payer OTHER, SELFPAY | PROVIDERS: PCP Internal Medicine; Visit Provider Internal Medicine | DX: Z00.01 Encounter for general adult medical examination with abnormal findings (principal); R73.01 Impaired fasting glucose; M17.0 Bilateral primary osteoarthritis of knee | CPT/HCPCS: 96127; 99212; 99397 ==

== ENCOUNTER 2025-06-14 06:39 | Outpatient (REF) | payer OTHER, SELFPAY ==
--- NOTE | ~2025-06-14 | XR_ITS ---
Examination: Three-view bilateral elbows TECHNIQUE: AP, oblique, lateral view upper extremity joint, bilateral elbows INDICATION: Degenerative joint disease COMPARISON: Right elbow from 05/27/2013 FINDINGS: Left elbow: There are marginal osteophytes involving the radial head, proximal ulna, and distal humerus. There is enthesophyte at the triceps attachment on the olecranon. Right elbow: Again seen is a large marginal osteophytes involving the radiohumeral and ulnohumeral joints. Osteophyte size is slightly increased from the prior. There are likely intra-articular ossified bodies. There is an ossification dorsal to the ulnar side of the distal humerus that may be intra-articular. It has increased in size from the prior. XR/XR Elbow Garfield 2V IMPRESSION: There are moderate degenerative changes of the left elbow. There are severe degenerative changes of the right elbow that have increased. Probable intra-articular ossified bodies have increased in size. Electronically signed by: Umair Tong MD 06/14/2025 09:44 AM ARLINE
--- NOTE | ~2025-06-14 | XR_ITS ---
EXAMINATION: XR KNEE, BILATERAL CLINICAL INFORMATION: M17.0 - Bilateral primary osteoarthritis of knee COMPARISON: March 13, 2016 TECHNIQUE: AP and lateral views in standing position both knees. FINDINGS: Joint space narrowing involving mostly the medial compartments of the knees with sclerosis along the articular surface of the medial tibial plateau. No acute fracture or dislocation. No gross suprapatellar bursa joint effusion. No lytic or blastic lesions. XR/XR Knee Garfield 1or 2V IMPRESSION: Medial compartment osteoarthrosis/osteoarthritis, mild, bilaterally. Electronically signed by: Chaitanya Chua MD 06/14/2025 09:32 AM ARLINE
--- OUTSIDE RECORDS SUMMARY | 2025-06-14 06:42 | XMS_ITS | Clinical Summary ---
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
--- OUTSIDE RECORDS SUMMARY | 2025-06-14 06:42 | XMS_ITS | Patient Health Record ---
Author Organization [facility] Address [address] [place] [address] Care Team Providers Care Bander Operator Name Role Phone Sharan [place], [facility] Primary Care Provider Rupesh Gianes Jr Allergies No Known Allergies Reason For Referral No Information Medications Medication SIG (Take, Route, Frequency, Duration) Notes Start Date End Date Status MiraLax (colon prep) 17 GM/SCOOP Powder mixed with Gatorade or Crystal Light Orally begin at 5:00 p.m. the day before the procedure; Duration: 1 day 03/28/2024 Active Immunizations Vaccine Route Administration Date Status Comme nts Influenza Unknown 03/28/2024 Refused Social History Social History Drugs/Alcohol: Social Info Question Answer Notes Alcohol Screen Did you have a drink containing alcohol in the past year? Yes How often did you have a drink containing alcohol in the past year? 2 to 3 times a week (3 points) How many drinks did you have on a typical day when you were drinking in the past year? 10 or more drinks (4 points) How often did you have 6 or more drinks on one occasion in the past year? 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 Problems Problem Type SNOMED Code ICD Code Onset Dates Problem Status W/U Status Risk Notes Problem Colon cancer screening (927255669) Colon cancer screening (V76.51) Active confirmed Problem Colon cancer screening (674819060) Colon cancer screening (Z12.11) Active confirmed Problem Pre-procedure evaluation check (834101427) Encounter for other preprocedural examination (Z01.818) Active confirmed Plan Of Treatment Future Test Test Name Order Date COLONOSCOPY 05/27/2013 COLONOSCOPY 03/28/2024 Insurance Providers Payer Name Payer Address Payer Phone Subscriber Number Group Number Insured Name Patient Relationship to Insured Coverage Start Date Coverage End Date [place] [address] [place] [phone] [id number] MEERA CALDWELL Self - patient is the insured Medical (General) History Medical History History ICD Code Colonoscopy 2013, hyperplastic polyp, te n-year followup. Surgical History Surgery Date(Month/Year)
[2025-06-14 10:03] LABS: MANUAL DIFF FLAG NO
[2025-06-14 10:09] LABS: Hematocrit 40.1 % (42.0-52.0); Hemoglobin 13.5 g/dl (14.0-18.0); Imm Gran Abs Auto 0.01 X10*3/uL (0.00-0.03); Imm Gran Pct Auto 0.1 % (0.0-0.4); Lymphocytes Absolute Auto 2.6 X10*3/uL (1.2-4.9); Mean Corpuscular HGB Conc 33.7 g/dl (31.0-36.0); Mean Corpuscular Hemoglobin 30.7 pg (27.0-33.0); Mean Corpuscular Volume 91.1 fL (80.0-98.0); NRBC Abs Auto 0.000 X10*3/uL (0.0-0.012); NRBC Pct Auto 0.0 /100WBC (0.0-0.2); Platelet Count 291 X10*3/uL (160-400); Red Blood Count 4.40 X10*6/uL (4.60-5.80); White Blood Count 7.1 X10*3/uL (4.8-10.8)
[2025-06-14 10:26] LABS: Anion Gap 10 (12-20); Blood Urea Nitrogen 19 mg/dL (9-16); Carbon Dioxide 28 mmol/L (22-29); Chloride 108 mmol/L (96-108); Estimated Glomerular Filt Rate > 60; Potassium 4.7 mmol/L (3.3-5.1); Sodium 141 mmol/L (135-145)
[2025-06-14 10:27] LABS: Alanine Aminotransferase 11 U/L (0-40); Albumin Level 4.0 g/dL (3.5-5.0); Alkaline Phosphatase 76 U/L (39-117); Aspartate Amino Transferase 24 U/L (5-37); Calcium 8.6 mg/dL (8.4-10.2); Cholesterol 143 mg/dL (<200); HDL Cholesterol 57 mg/dL (>40); Total Protein 6.5 g/dL (6.5-8.0); Triglycerides 51 mg/dL (<150)
[2025-06-14 11:01] LABS: Vitamin B12 290 pg/mL (200-900)
== END 2025-06-14 06:40 | disposition home or self-care (01) ==
LOC: HO.HMGCX 06:39
PROVIDERS: PCP Internal Medicine; Visit Provider Internal Medicine
DX: Z00.01 Encounter for general adult medical examination with abnormal findings (principal); M17.0 Bilateral primary osteoarthritis of knee; M77.11 Lateral epicondylitis, right elbow; M77.12 Lateral epicondylitis, left elbow; R73.01 Impaired fasting glucose
CPT/HCPCS: 36415; 73070; 73560; 80053; 80061; 82306; 82607; 83036; 85025

== ENCOUNTER → 2025-06-14 09:03 | Outpatient (BNV) | payer OTHER, SELFPAY | PROVIDERS: PCP Internal Medicine; Visit Provider Radiology Diagnostic Radiology | DX: M17.0 Bilateral primary osteoarthritis of knee (principal); M19.021 Primary osteoarthritis, right elbow; M19.022 Primary osteoarthritis, left elbow | CPT/HCPCS: 73070; 73560 ==